=== PATIENT | female | born 1995 | race Caucasian/White ===

== ENCOUNTER 2019-12-19 06:06 | Day surgery (SDC) | payer SELFPAY ==
[2019-12-12 13:45] LABS: BASOPHIL % 0.4 % (0-2); PLATELET COUNT 172 x10^3mcL (130-400); RED CELL DISTRIBUTION WIDTH 13.2 % (11.5-14.5)
[2019-12-12 14:01] LABS: ALKALINE PHOSPHATASE 43 U/L (46-116); ALT/SGPT 27 U/L (14-59); AST/SGOT 16 U/L (15-37); CALCIUM 8.8 mg/dL (8.5-10.1); CARBON DIOXIDE 23.5 mmol/L (21-32); CHLORIDE SERUM 105 mmol/L (98-107); CREATININE SERUM 1.1 mg/dL (0.6-1.0); GFR1 > 60 mL/min; GLUCOSE SERUM 97 mg/dL (74-106); POTASSIUM SERUM 4.1 mmol/L (3.5-5.1); SODIUM SERUM 140 mmol/L (136-145); TOTAL PROTEIN, SERUM 7.6 g/dL (6.4-8.2)
[~2019-12-19] VITALS: Ht 172.7 cm; Wt 71.2 kg
[2019-12-19 06:31] VITALS: BP 125/70
[2019-12-19 11:38] VITALS: BP 109/57
== END 2019-12-19 11:20 | disposition home or self-care (01) ==
LOC: DS 06:06 → OR 07:30 → DS 07:30
DX: S90.851D Superficial foreign body, right foot, subsequent encounter (principal); F41.9 Anxiety disorder, unspecified; Z98.890 Other specified postprocedural states; Z11.59 Encounter for screening for other viral diseases; Z81.8 Family history of other mental and behavioral disorders; Z82.5 Family history of asthma and other chronic lower respiratory diseases; X58.XXXD Exposure to other specified factors, subsequent encounter; L08.9 Local infection of the skin and subcutaneous tissue, unspecified
CPT/HCPCS: J0690; J2175; J2250; J2405; J2704; J3010; J3490; J7120; U0003-CS